=== PATIENT | female | born 1985 | race Caucasian/White ===

== ENCOUNTER → 2024-09-28 | Outpatient (CLI) | payer BC, SELFPAY ==
--- NOTE | 2024-09-28 13:30 | XR_ITS ---
Examination: Breast ultrasound complete, bilateral Date and time of exam: September 28, 2024 1336 hours INDICATIONS: History left breast mastitis June 2024, family history breast cancer Technique: Real-time grayscale ultrasonographic imaging bilateral breasts, including all 4 quadrants as well as nipple retroareolar and axillary regions. Findings: Sonographic images right and left breast demonstrated no cystic or solid masses IMPRESSION: BI-RADS Category 1: Negative study
--- NOTE | 2024-09-28 14:30 | XR_ITS ---
Examination: Diagnostic digital mammography, bilateral Computer aided detection 3-D breast Tomosynthesis, bilateral Date and time of exam: September 28, 2024 1348 hours Compared to mammograms dating to October 11, 2017 INDICATIONS: Recent left breast infection June 2024 Technique: Nonmagnified MLO, CC views of the breasts to been obtained, reconstructed from 3-D Tomosynthesis images. R2 computer aided detection program utilized for evaluation of suspicious masses and/or abnormal calcifications. 3-D Tomosynthesis images obtained. Findings: Scattered areas of fibroid rather density. Benign calcifications. No interval suspicious masses Impression: BI-RADS Category 2: Benign findings Recommend yearly follow-up mammography.
== END | disposition home or self-care (01) ==
PROVIDERS: PCP Student in an Organized Health Care Education/Training Program; Referring Provider Specialist; Visit Provider Specialist
DX: R92.323 Mammographic fibroglandular density, bilateral breasts (principal); R92.1 Mammographic calcification found on diagnostic imaging of breast; Z80.3 Family history of malignant neoplasm of breast
CPT/HCPCS: 76641; 77062; 77066; G0279

== ENCOUNTER 2025-02-04 14:04 | Outpatient (AMB) | payer BC, SELFPAY ==
--- NOTE | 2025-02-04 14:14 | PD.GSCLVISIT ---
Vital Signs - [facility] 02/04/25 14:15 Height 1.65 m Height Method Stated Weight 96.814 kg Weight Measurement Method Standing Scale BMI 35.5 BP 111/78 Blood Pressure Source Automatic Cuff Blood Pressure Location Left Upper Arm Position Sitting Respiration 18 Pulse 74 Pulse Source Monitor Temp 98.2 F Temp Source Temporal Artery Scan Pulse Oximetry (%) 98 Oxygen Delivery Method Room Air Med/Allergies Allergies & Medications Allergies erythromycin base Allergy (Severe, Verified 02/04/25 14:15) Diarrhea Medication Reconciliation lorazepam 0.5 mg tablet (Ativan) 0.5 mg PO BID PRN anxiety #6 tabs 12/07/21 [Rx Confirmed 02/04/25] buspirone 15 mg tablet 15 mg PO BID 12/08/21 [History Confirmed 02/04/25] paroxetine HCl 20 mg tablet 20 mg PO QDAY 12/08/21 [History Confirmed 02/04/25] propranolol 20 mg tablet 20 mg PO BID 12/08/21 [History Confirmed 02/04/25] calcium polycarbophil 625 mg tablet (Fiber-Tabs) 1,250 mg (2 x 625 mg) PO BID #30 tabs 05/28/22 [Rx Confirmed 02/04/25] ciprofloxacin HCl 500 mg tablet (Cipro) 500 mg PO BID #14 tabs 05/28/22 [Rx Confirmed 02/04/25] hydrocortisone acetate 25 mg rectal suppository (Anusol-HC) 25 mg KS BID #24 ea 05/28/22 [Rx Confirmed 02/04/25] diphenoxylate-atropine 2.5 mg-0.025 mg tablet (Lomotil) 1 tab PO QDAY #3 tabs 04/25/23 [Rx Confirmed 02/04/25] ondansetron 4 mg disintegrating tablet 4 mg PO Q8H #14 tabs 04/25/23 [Rx Confirmed 02/04/25] albuterol sulfate 90 mcg/actuation aerosol inhaler 2 puff inhalation Q4H PRN shortness of breath or wheezing #8.5 grams 09/20/23 [Rx Confirmed 02/04/25] amoxicillin 875 mg-potassium clavulanate 125 mg tablet 1 tab PO BID #20 tabs 09/20/23 [Rx Confirmed 02/04/25] ibuprofen 600 mg tablet 600 mg PO Q8H PRN pain #20 tabs 07/18/24 [Rx Confirmed 02/04/25] MA Intake Visit Data Collection New Patient or Established: Established Patient (seen at [facility] within 3 years) Seen by Clinical Staff ONLY (RN/MA): No Reason for Visit:: REFERRAL HEMORRHOIDS Pain Present Currently: Yes Pain Location: Rectum and Unable to identify Pain scale:: 5 PCP or OBGYN visit in last 3 months: Yes Smoking Status Smoking Status: Never smoker Immunization / Flu Flu Vaccine in the Last 12 Months: No Flu Vaccine Exclusion Criteria: Refused by Patient Past Medical History Past Medical History NEUROLOGIC: Positive Neurological Disorders, Seizures, Epilepsy and Head Trauma CARDIAC: Negative Cardiac Disorders or Congestive Heart Failure RESPIRATORY: Negative Chronic Obstructive Pulmonary Disease (COPD) or Asthma GASTROINTESTINAL: Negative Gastrointestinal Disorders GENITOURINARY: Negative Genitourinary Disorders or Renal Disease REPRODUCTIVE: Positive Previous Pregnancies MUSCULOSKELETAL: Positive Fractures ENT: Positive Head Trauma ENDOCRINE: Negative Endocrine Disorders, Diabetes Mellitus Type 1 or Diabetes Mellitus Type 2 HEMATOLOGIC: Negative Blood Disorders or Sickle Cell Disease PSYCHO/SOCIAL: Positive Depression OTHER HISTORY: Positive Anesthesia Reactions and MRSA; Negative Autoimmune Disease Family History FAMILY HISTORY: Positive Family Respiratory Disorders, Family Cancer and Family Surgery; Negative Family Cardiac Disorders Surgical History SURGICAL: Positive Tympanostomy Tube and Oral Surgery Social History SMOKING STATUS: Smoking status: Never smoker ALCOHOL: Alcohol Intake: Never ALCOHOL FREQUENCY: Alcohol Intake Frequency: holidays/special occasions only HOUSING: Housing: Apartment [facility] HPI Narrative 40 year old female presenting for evaluation of hemorrhoid. Patient states that she first noticed the hemorrhoid 2 years ago, and was given topical hydrocortisone as well as another topical cream which she cannot recall the name of at this time. However, she has noticed worsening and increasing symptoms for the past 5-6 months. She reports significant pain and discomfort when the hemorrhoid is inflamed as well as with BMs. She also reports significant amount of bleeding during BMs, and sometimes she has to get into the shower and wait for the bleeding to resolve. Most recent episode of inflamed hemorrhoid and significant bleeding was last night. She is experiencing pain and discomfort with sitting today. Denies constipation. She states that ever since starting psych meds approx. 7 years ago, her BMs have consistently been loose with multiple BMs daily and states that this has become her new normal. She uses hydrocortisone cream as needed and witch yann, but has not yet tried sitz bath. PMH: epilepsy, migraines, major depressive disorder, panic disorder, cervical dysplasia, back pain PSH: LEEP x2 for cervical dysplasia Meds: sertraline, buspirone, lorazepam, nexplanon, nurtec, propranolol Allergies: erythromycin Family Hx: colon cancer (grandfather), breast cancer (multiple family members, including both grandmothers), cancer in reproductive organs (mother with Hx of hysterectomy due to cancer), father with due to metastatic malignancy but unsure what type of cancer Social Hx: nonsmoker ROS Review of Systems Systems Reviewed: All systems reviewed, normal except as documented Objective/Exam General General Appearance: alert, comfortable and cooperative Resp Respiratory exam: Absent respiratory distress Assessment & Plan Diagnosis / Problem List (1) Hemorrhoid: Status: Acute Assessment & Plan: 40 year old female presenting for evaluation of hemorrhoid x 2 years with worsening over the past 5-6 months. Patient reports significant pain and discomfort, as well as significant amount of bleeding associated with the hemorrhoid. Discussed conservative management vs surgical options. Discussed risks, benefits and alternatives to surgical treatment. Patient would like to defer surgical treatment at this time. She would first like to trial conservative management. Recommended increasing water intake to approx. 64 ounces daily, as well as increasing fiber intake with Metamucil powder formulation. Informed patient that daily fiber recommendation for women is approx. 25 g. Recommended sitz bath for 10-15 minutes up to 3 times daily if possible. Patient to continue hydrocortisone cream and witch yann as needed for relief. Dicsussed with patient that she can also trial Pranicuria, which is an OTC cream. Patient understand and agrees with plan for conservative management at this time which includes increasing water intake, fiber supplementation, and sitz bath. Patient to return to clinic in 6 weeks for follow up. Office Procedures GNS Level of Care Nursing/Assessment Patient Status: Established Patient Nursing Assessment/Reassesment: Medication Reconciliation, Update PMH in EMR and Vital Signs Coordination of Care: Complex Care and Chronic Disease 1-5, Consent,records obtained, informed consent, Education Simp Pt/Fam, Results/Orders obtained and Staff clarify orders Established Patient Charge Established Patient Point Assignment: 90 Established Patient Point Charge: EP Level 3 (80-115) Patient Portal Questionaires Social History Living Situation History Housing: Apartment Tobacco History Smoking Status: Never smoker Alcohol History Alcohol Intake: Never Alcohol Intake Frequency: holidays/special occasions only Review of Systems Report any current symptoms Only answer those that you have currently: Past Medical History Past Medical History Have you ever been diagnosed with any of the following: Neurological Problems Seizures: Yes Epilepsy: Yes Head Trauma: Yes Cardiology Problems Congestive Heart Failure: No Respiratory Problems Chronic Obstructive Pulmonary Disease (COPD): No Asthma: No Genital/Urinary Problems Renal Disease: No Reproductive Problems Previous Pregnancies: Yes Musculoskeletal Problems Fractures: Yes Endocrine Problems Diabetes Mellitus Type 1: No Diabetes Mellitus Type 2: No Blood Problems Sickle Cell Disease: No Psychologic Problems Depression: Yes Other Problems Autoimmune Disease: No Anesthesia Reactions: Yes MRSA: Yes
[2025-02-04 14:15] VITALS: BP 111/78; PULSE 74; RESP 18; TEMP 36.8; O2SAT 98; BMI 35.5
== END 2025-02-04 15:00 | disposition home or self-care (01) ==
LOC: HODSRG 14:04
PROVIDERS: PCP Student in an Organized Health Care Education/Training Program; Referring Provider Student in an Organized Health Care Education/Training Program; Supervising Provider Surgery; Visit Provider Surgery
DX: K64.9 Unspecified hemorrhoids (principal)
CPT/HCPCS: 99213; G0463